=== PATIENT | female | born 1950 | race Native Hawaiian/Other Pacific Islander ===

== ENCOUNTER 2017-05-29 12:51 | Inpatient (IN) | payer MEDICARE, BC, OTHER ==
[~2017-05-29] VITALS: Ht 157.5 cm; Wt 64.9 kg
[2017-05-29 14:19] LABS: CREATININE 0.9 mg/dL (0.6-1.3)
[2017-05-29 14:32] LABS: BILIRUBIN,DIRECT 0.3 mg/dL (0.0-0.2); BILIRUBIN,TOTAL 0.7 mg/dL (0.2-1.0); TOTAL PROTEIN, SERUM 7.9 g/dL (6.4-8.2)
--- NOTE | 2017-05-29 15:53 | NUR ---
DR. MALONE ADMITTED THE PT TO TELE. TRANSFER TO FLOOR PENDING ON BED AVAILABILITY.
[2017-05-29 15:54] LABS: BASOPHILS % (AUTO) 0.2 % (0.0-2.0); EOSINOPHILS % (AUTO) 0.1 % (0.0-7.0); LYMPHOCYTES % (AUTO) 30.7 % (20.5-51.5); MEAN CORPUSCULAR HEMOGLOBIN 40.8 uug (24.7-32.8); MEAN CORPUSCULAR HGB CONC 33 g/dL (32.3-35.6); MEAN CORPUSCULAR VOLUME 121.9 fL (75.5-95.3); MONOCYTES # (AUTO) 0.2 K/uL (2.0-10.0); MONOCYTES % (AUTO) 7.4 % (0.0-11.0); NEUTROPHILS % (AUTO) 61.6 % (38.5-71.5); WHITE BLOOD COUNT (AUTO) 3.3 K/uL (3.8-11.8)
[2017-05-29 15:57] LABS: HEMATOCRIT 10.9 % (31.2-41.9); HEMOGLOBIN 3.6 g/dL (10.9-14.3); PLATELET COUNT (AUTO) 16 K/uL (179-408)
--- NOTE | 2017-05-29 15:58 | NUR ---
PT REFUSES NC.
[2017-05-29 16:41] LABS: BAND % (MANUAL) 2 % (0-10); LYMPHOCYTES % (MANUAL) 28 % (20-40); MONOCYTES % (MANUAL) 2 % (2-10); NEUTROPHILS % (MANUAL) 68 % (42-75)
--- NOTE | 2017-05-29 16:43 | NUR ---
PT ON BED, ON EXHIBIT CLEANER, WATCHING TV. BREATHING NORMALLY, DENEIS ANY HEADACHE, DIZZINESS, SOB N/V AT THIS TIME. VS STABLE.
--- NOTE | 2017-05-29 18:10 | NUR ---
HOSPITAL DINNER TRAY PROVIDED FOR PT. PT REFUSED TO EAT AT THIS TIME.
--- NOTE | 2017-05-29 18:19 | NUR ---
PT DAUGHTER AT BEDSIDE TALKING TO PT.
--- NOTE | 2017-05-29 18:20 | NUR ---
BLOOD TRANSFUSION STARTED.
--- NOTE | 2017-05-29 19:16 | NUR ---
REPORT TAKEN FROM JAYLEEN SCOTT. ASSUMING PT CARE AT THIS TIME.
--- NOTE | 2017-05-29 19:51 | NUR ---
BLOOD TRANSFUSION FINSHED. PT TOLERATED WELL. PT BREATHINHG NORMALY, NO SOB.
--- NOTE | 2017-05-29 20:06 | NUR ---
PT SITTING IN BED, APPEARS TO BE AGGITATED AND CONFUSED, PICKING AT IV SITE. CHLDREN AT BEDSIDE.
--- NOTE | 2017-05-29 21:00 | NUR ---
BLOOD TRANSFUSION STARTED.
--- NOTE | 2017-05-29 21:15 | NUR ---
PT DENIES ITCHING. NO SIGNS OF BLOOD TRANSFUSION REACTION. WILL CONTINUE TO MONITOR.
--- NOTE | 2017-05-29 21:36 | NUR ---
PT STILL REFUSES TO PROVIDE URINE SAMPLE. STATES SHE DOES NOT HAVE TO URINATE.
--- NOTE | 2017-05-29 22:10 | NUR ---
Pt. admitted to TELE, under care of Dr. VEGA Belongs List completed
--- NOTE | 2017-05-29 22:11 | NUR ---
BLOOD TRANSFUSION ENDORSED TO FLOOR NURSE.
--- NOTE | 2017-05-29 22:30 | NUR ---
NEW ADMIT FROM ER, ADMITTED FOR ANEMIA. PATIENT TRANSFERRED WITH BLOOD TRANSFUSION AND IN STABLE CONDITION. VSS STABLE WILL CONTINUE TO CLOSELY MONITOR PATIENT
[2017-05-29 22:31] VITALS: BP 138/69
[2017-05-29] MEDS ORDERED: MAGNESIUM HYDROXIDE 30 ML LIQUID UDC PO PRN (23:00)
[2017-05-29] MEDS ORDERED: LORAZEPAM 2 MG/1 ML VIAL IV PRN (23:00)
[2017-05-29] MEDS ORDERED: ONDANSETRON 4 MG/2 ML VIAL IV PRN (23:00)
[2017-05-29] MEDS ORDERED: TEMAZEPAM 15 MG CAPSULE PO PRN (23:00)
--- NOTE | 2017-05-29 23:45 | NUR ---
PLATELETS READY TO TRANSFUSE. PATIENT VERIFIED, TRANSFUSION STARTED VSS ASSESSED BP 141/64, NY 61, TEMP 98.9, RR 18. WILL CONTINUE TO CLOSELY MONITOR PATIENT
[2017-05-30] VITALS (14 sets, daily range): BP systolic 97–138; BP diastolic 40–68
--- NOTE | 2017-05-30 | NUR ---
ASSESSED PATIENT WITH NO ADVERSE REACTION NOTED, VSS ASSESSED BP 121/61, RR 18, TEMP 98.9, IA 64. NO RESP DISTRESS OR ANY SIGNS OF DISTRESS. TRANSFUSION STILL RUNNING, WILL CONTINUE TO CLOSELY MONITOR PATIENT
--- NOTE | 2017-05-30 02:00 | NUR ---
END TRANSFUSION, PATIENT TOLERATED INFUSION WELL VSS STABLE BP 122/61, CT 62, RR 18, 98.6. PATIENT WITH NO S/S OF RESP DISTRESS OR ANY DISCOMFORT. PATIENT IN STABLE CONDITION, WILL CONTINUE TO MONITOR PATIENT
--- NOTE | 2017-05-30 05:55 | NUR ---
PATIENT SLEPT MOST OF THE SHIFT, SHE DENIES PAIN, ANY DISTRESS OR DIZZINESS. PATIENT NOTED WITH EPISODES OF CONFUSION, REDIRECTION PROVIDES. VSS STABLE, NO SIGNIFICANT CHANGES IN STATUS. SAFETY AND COMFORT MEASURES MAINTAINED AT ALL TIMES
[2017-05-30 06:46] LABS: BILIRUBIN,TOTAL 2.2 mg/dL (0.2-1.0); CREATININE 0.7 mg/dL (0.6-1.3); MAGNESIUM 2.6 mg/dL (1.8-2.4); PHOSPHOROUS 2.3 mg/dL (2.5-4.9); POTASSIUM 3.6 mmol/L (3.5-5.1); TOTAL PROTEIN, SERUM 7.3 g/dL (6.4-8.2)
[2017-05-30 07:04] LABS: BASOPHILS % (AUTO) 0.1 % (0.0-2.0); MONOCYTES # (AUTO) 0.2 K/uL (2.0-10.0); PLATELET COUNT (AUTO) 58 K/uL (179-408)
[2017-05-30 07:07] LABS: EOSINOPHILS % (AUTO) 0.2 % (0.0-7.0); LYMPHOCYTES # (AUTO) 0.7 K/uL (20.0-40.0); LYMPHOCYTES % (AUTO) 24.4 % (20.5-51.5); MEAN CORPUSCULAR HEMOGLOBIN 35.2 uug (24.7-32.8); MEAN CORPUSCULAR HGB CONC 35 g/dL (32.3-35.6); MEAN CORPUSCULAR VOLUME 100.4 fL (75.5-95.3); NEUTROPHILS % (AUTO) 68.3 % (38.5-71.5); WHITE BLOOD COUNT (AUTO) 2.9 K/uL (3.8-11.8)
--- NOTE | 2017-05-30 07:20 | NUR ---
Dr blake notified of patient's critical values for H/h of 6.2/17.7 PLT of 58. RBC of 1.76. No new orders received. Per Dr blake pt will be seen by communications superintendent. Pt asymptomatic. Call light is within reach.
[2017-05-30 07:26] LABS: RED BLOOD CELL COUNT(AUTO) 1.75 MIL/uL (3.63-4.92)
[2017-05-30 07:27] LABS: HEMATOCRIT 17.6 % (31.2-41.9); HEMOGLOBIN 6.2 g/dL (10.9-14.3)
--- NOTE | 2017-05-30 08:00 | NUR ---
Pt is in no acute distress. Pt very confused. Pt alert to name, time, and place but needed reorientation on why pt is here. Pt all dressed up and wont take of her clothes states that she will wait for the doctor to come and see her. Pt states that she has problem with her legs and will tell the DR about it. Pt denies any c/o pain. Fall precaution implemented. Call light is within reach.
[2017-05-30 08:15] LABS: THYROID STIMULATING HORMONE 1.425 mIU/mL (0.358-3.740)
[2017-05-30] MEDS: FAMOTIDINE 20 MG TABLET PO SCH ×2 (08:43→08:46)
[2017-05-30 08:47] LABS: LYMPHOCYTES % (MANUAL) 30 % (20-40); MONOCYTES % (MANUAL) 2 % (2-10); NEUTROPHILS % (MANUAL) 68 % (42-75)
--- NOTE | 2017-05-30 11:00 | NUR ---
Dr blake ok pt to work with physical therapy. Notified physical therapy re: albertina.
[2017-05-30] MEDS ORDERED: NEUTRA PHOS PACKET PO ONE (16:15)
--- NOTE | 2017-05-30 17:00 | NUR ---
Pt is in no acute distress. NO s/s of any bleeding noted. Call light is within reach.
--- NOTE | 2017-05-30 18:07 | NUR ---
Dr palmer referral clerk evaluated pt. Pt is in no condition to make decision for herself due to pt is very confused and doesnt understand whats going on. Dr Palmer Spoke with next of kin RYNE DUONG [phone] pt's son and explained situation on why pt need to have a bone marrow biopsy its benefits and risk of doin biopsy. Ryne is going to speak with his sister and discuss if they are willing to do the bone marrow biopsy. Instructed ryne duong to call nursing when they are willing to give consent. Ryne son verbalized understanding.
--- NOTE | 2017-05-30 19:30 | NUR ---
Received patient awake & alert, family in room (daughter & son). No SOB denies chest pain. Anxious & hyperverbal. Pale looking , current H/H 6.2/ 17.6. Transfusion of 1 unit PRBC was ordered by Dr. Palmer, & for Bone marrow biopsy in AM. Explained the procedure to patient but patient appears confused & forgetful. Obtained procedure consent from patient's daughter, Brendan. Vital signs are stable, sinus rhythm on the monitor.
--- NOTE | 2017-05-30 21:18 | NUR ---
Patient remains awake but pleasantly confused. Transfusion of 1 unit PRBC started. Vital signs are stable. Telemetry shows NSR. Will continue to monitor.
--- NOTE | 2017-05-30 22:12 | NUR ---
Patient asleep, no signs of transfusion reaction noted.
[2017-05-31] VITALS (7 sets, daily range): BP systolic 96–154; BP diastolic 56–76
--- NOTE | 2017-05-31 00:04 | NUR ---
Patient tolerated 1 unit PRBC, no signs of transfusion reaction noted. No acute resp distress. Sinus rhythm on the monitor. Kept comfortable.
--- NOTE | 2017-05-31 07:00 | NUR ---
Patient rested well, kept comfortable. For Bone marrow biopsy procedure today. No acute resp. distress. Sinus rhythm on the monitor.
[2017-05-31 07:55] LABS: EOSINOPHILS % (AUTO) 0.4 % (0.0-7.0); HEMOGLOBIN 8.5 g/dL (10.9-14.3); LYMPHOCYTES # (AUTO) 0.7 K/uL (20.0-40.0); MONOCYTES # (AUTO) 0.2 K/uL (2.0-10.0)
[2017-05-31 07:59] LABS: BASOPHILS % (AUTO) 0.1 % (0.0-2.0); HEMATOCRIT 24.5 % (31.2-41.9); LYMPHOCYTES % (AUTO) 29.2 % (20.5-51.5); MEAN CORPUSCULAR HEMOGLOBIN 33.6 uug (24.7-32.8); MEAN CORPUSCULAR HGB CONC 35 g/dL (32.3-35.6); MEAN CORPUSCULAR VOLUME 96.9 fL (75.5-95.3); MONOCYTES % (AUTO) 8.1 % (0.0-11.0); NEUTROPHILS # (AUTO) 1.5 K/uL (1.8-8.9); NEUTROPHILS % (AUTO) 62.2 % (38.5-71.5); RED BLOOD CELL COUNT(AUTO) 2.53 MIL/uL (3.63-4.92)
--- NOTE | 2017-05-31 08:00 | NUR ---
Pt still very confused. Awaiting for psychiatrist eval per dr blake. Pt's family signed consent for bone marrow biopsy. Pt is in no acute distress. Call light is within reach. Fall precaution implemented.
[2017-05-31] MEDS: FAMOTIDINE 20 MG TABLET PO SCH (08:06)
[2017-05-31 08:21] LABS: PLATELET COUNT (AUTO) 36 K/uL (179-408)
[2017-05-31 08:59] LABS: BILIRUBIN,DIRECT 0.4 mg/dL (0.0-0.2); BILIRUBIN,TOTAL 1.5 mg/dL (0.2-1.0); TOTAL PROTEIN, SERUM 7.4 g/dL (6.4-8.2)
[2017-05-31 09:00] LABS: CREATININE 0.6 mg/dL (0.6-1.3); MAGNESIUM 2.5 mg/dL (1.8-2.4); PHOSPHOROUS 2.5 mg/dL (2.5-4.9); POTASSIUM 3.4 mmol/L (3.5-5.1)
[2017-05-31 10:42] LABS: WHITE BLOOD COUNT (AUTO) 2.5 K/uL (3.8-11.8)
[2017-05-31 10:43] LABS: LYMPHOCYTES % (MANUAL) 33 % (20-40); MONOCYTES % (MANUAL) 5 % (2-10); NEUTROPHILS % (MANUAL) 62 % (42-75)
--- NOTE | 2017-05-31 10:49 | NUR ---
PT NOT NPO FOR ABDOMEN US. SPOKE TO RN HOMER AND PLACED PT ON NPO. WILL DO EXAM AT 3PM
[2017-05-31] MEDS ORDERED: POTASSIUM CHLORIDE 20 MEQ TAB.PRT.SR PO ONE (11:15)
[2017-05-31 13:13] LABS: *BLOOD, URINE 2+ (NEGATIVE); *COLOR,URINE AMBER (YELLOW); *KETONES,URINE 2+ (NEGATIVE); *PROTEIN,URINE 1+ (NEGATIVE); *UROBILINOGEN,URINE >=8.0 E.U./dl (NORMAL); LEUKOCYTE ESTERASE ,URINE TRACE (NEGATIVE); NITRITE, URINE POSITIVE (NEGATIVE); PH,URINE 6.5 (5.0-8.0); UGLUCOSE NEGATIVE (NEGATIVE)
[2017-05-31 15:16] LABS: *BILIRUBIN,URIN 1+ (NEGATIVE); *CLARITY,URINE HAZY (CLEAR)
[2017-05-31 15:18] LABS: BACTERIA,URINE MODERATE /HPF (NONE SEEN)
[2017-05-31 15:19] LABS: MUCUS,URINE MANY /LPF (0-FEW); SQUAMOUS EPITHELIAL CELL,UR MODERATE /HPF (NONE SEEN)
--- NOTE | 2017-05-31 17:14 | NUR ---
Spoke with brendan duong [phone] daughter for pt re: Mishel Frias consent request for EGD. Daughter brendan wants to speak with BHANU Frias first to ask questions before making a decision to do the procedure. Gave number of ASAEL DRUMMOND [phone] to Brendan. Instructed daughter Brendan to call back when decision is made re: EGD.
[2017-05-31] MEDS: MORPHINE SULFATE 2 MG/1 ML DISP.SYRIN IV PRN (18:49)
[2017-05-31] MEDS ORDERED: LIDOCAINE HCL 1% 20 ML VIAL IJ ONE (19:15)
--- NOTE | 2017-05-31 19:30 | NUR ---
RECEIVE PT IN BED. ALERT TO SELF ONLY. MAINLY CONFUSED AND DISORIENTED. NOT IN ACUTE DISTRESS. NO S/SX OF PAIN OR SOB. SR ON TELE AT 61/MIN. IV SITE ON RIGHT AC INTACT AND PATENT. SAFETY MEASURE INITIATED AND CALL [facility] WITHIN REACHED.
--- NOTE | 2017-05-31 19:51 | NUR ---
pT TOLERATED BONE MARROW BIOPSY WITH DR ISSA BUSH. Pt was premedicated with morphine for pain management effective. Call light is within reach.
--- NOTE | 2017-05-31 19:58 | NUR ---
PT SEEN BY DOCTOR Randall BUSH AND ORDERED 1 BAG OF PLATELET.
--- NOTE | 2017-05-31 20:30 | NUR ---
TELEPHONE CALL TO PT DAUGHTER ISAI TO OBTAIN CONSENT FOR EGD PROCEDURE. PER ROBERTO SHE HAD CALLED THE DOCTOR 2X TODAY AND SHE IS STILL WAITING FOR DOCTOR VYAS'S RETURN CALL AND WANTED TO SPEAK TO HER ABOUT THE PROCEDURE, BEFORE GIVING HER CONSENT. STATED SHE WILL KEEP TRYING TO CALL DOCTOR VYAS UNTIL TOMORROW MORNING TO GET MORE INFORMATION AND WILL CALL [facility] IN THE MORNING AFTER TALKING TO THE DOCTOR. INFORMED ROBERTO THAT PROCEDURE IS AT 2PM TOMORROW AND STATES UNDERSTANDING.
[2017-06-01] VITALS (8 sets, daily range): BP systolic 105–127; BP diastolic 46–68
--- NOTE | 2017-06-01 01:30 | NUR ---
COMPLETED 1 UNIT OF PLATELET. NO ADVERSE REACTION NOTED. VS WNL.
--- NOTE | 2017-06-01 01:45 | NUR ---
IV INFILTRATED ON RIGHT AC. STARTED NEW IV ON LEFT AC.
--- NOTE | 2017-06-01 06:09 | NUR ---
AOX1. MAINLY CONFUSED. DENIES ANY PAIN OR SOB WHEN ASKED. NOT IN ACUTE DISTRESS. O2 SAT AT 98% ON RA. SR ON TELE AT 59/MIN. IV SITE ON LEFT AC INTACT AND PATENT. SAFETY MEASURE MAINTAINED AND CALL [facility] WITHIN REACH.
--- NOTE | 2017-06-01 07:25 | NUR ---
RECEIVED REPORT FROM TRANSITION MGR NURSE, PATIENT IN BED AWAKE, PATIENT APPEARS TO BE VERY CONFUSED, ASKING FOR STAFF MEMBERS FROM YESTERDAY. PATIENT REPEATEDLY ASKING FOR SOMETHING THAT NEEDS TO BED SWALLOWED FOR HER STOMACH AND LEGGS. BED IN LOW POSITION, SIDE RAILS UP X2, BED ALARM ON.
[2017-06-01 07:30] LABS: CREATININE 0.6 mg/dL (0.6-1.3); MAGNESIUM 2.2 mg/dL (1.8-2.4); PHOSPHOROUS 2.6 mg/dL (2.5-4.9); POTASSIUM 3.8 mmol/L (3.5-5.1); TOTAL PROTEIN, SERUM 7.4 g/dL (6.4-8.2)
[2017-06-01 07:36] LABS: HEMOGLOBIN 8.6 g/dL (10.9-14.3); LYMPHOCYTES # (AUTO) 0.7 K/uL (20.0-40.0)
[2017-06-01 07:38] LABS: BASOPHILS % (AUTO) 0.2 % (0.0-2.0); EOSINOPHILS % (AUTO) 0.5 % (0.0-7.0); HEMATOCRIT 24.7 % (31.2-41.9); LYMPHOCYTES % (AUTO) 35.5 % (20.5-51.5); MEAN CORPUSCULAR HEMOGLOBIN 33.7 uug (24.7-32.8); MEAN CORPUSCULAR HGB CONC 35 g/dL (32.3-35.6); MEAN CORPUSCULAR VOLUME 97.2 fL (75.5-95.3); MONOCYTES # (AUTO) 0.1 K/uL (2.0-10.0); MONOCYTES % (AUTO) 8.1 % (0.0-11.0); NEUTROPHILS % (AUTO) 55.7 % (38.5-71.5); RED BLOOD CELL COUNT(AUTO) 2.54 MIL/uL (3.63-4.92)
[2017-06-01 07:45] LABS: PLATELET COUNT (AUTO) 71 K/uL (179-408); WHITE BLOOD COUNT (AUTO) 1.8 K/uL (3.8-11.8)
[2017-06-01 08:11] LABS: *IMMUNOGLOBULIN G, SERUM 2642 mg/dL (700-1600); IMMUNOGLOBULIN A, SERUM 315 mg/dL (87-352); IMMUNOGLOBULIN M, SERUM 69 mg/dL (26-217)
[2017-06-01] MEDS: PANTOPRAZOLE SODIUM 40 MG VIAL IV SCH (08:58)
[2017-06-01] MEDS: MORPHINE SULFATE 2 MG/1 ML DISP.SYRIN IV PRN (09:04)
[2017-06-01 10:07] LABS: BAND % (MANUAL) 3 % (0-10); BASOPHILS % (MANUAL) 1 % (0-2); LYMPHOCYTES % (MANUAL) 32 % (20-40); MONOCYTES % (MANUAL) 4 % (2-10); NEUTROPHILS % (MANUAL) 60 % (42-75)
[2017-06-01] MEDS: CEFTRIAXONE 1 G in IV DEXTROSE 5% 50 ML IV SCH (12:50)
[2017-06-01 13:06] LABS: A/G RATIO 0.6 (0.7-1.7); ALBUMIN 2.5 g/dL (2.9-4.4); ALPHA-1-GLOBULIN 0.4 g/dL (0.0-0.4); ALPHA-2-GLOBULIN 0.5 g/dL (0.4-1.0); GAMMA GLOBULIN 2.3 g/dL (0.4-1.8); GLOBULIN, TOTAL 4.1 g/dL (2.2-3.9); M-SPIKE Not Observed g/dL (Not Observed)
--- NOTE | 2017-06-01 14:33 | NUR ---
Patient has been very confused, stating that she needs to go to work and that she is going to leave. Patient is also very confused about the procedure that is going to take place today. Family consulted via telephone. Patient reports pain in bilateral lower extremities. Currently patient is in bed, waiting to be taken down to surgery, bed in low position, side rails up x2. surgery notified that the patient is reluctant to taking off jewelery and dentures
--- NOTE | 2017-06-01 15:23 | NUR ---
RECEIVED REPORT FROM DAY SHIFT NURSE TO CONTINUE CARE FOR THIS PATIENT. SURGERY WAS HERE TO TAKE PATIENT DOWN HOWEVER PATIENT IS REFUSING TO GO DOWN. EXPLAINED TO PATIENT THE REASON FOR EGD HOWEVER PATIENT WANTS HER "LEGS FIXED" AND NOT DOING ANYTHING UNTIL ITS ADDRESSED. ATTEMPTED TO CALL DAUGHTER ROBERTO BUT WENT STRAIGHT TO ANSWERING MACHINE. GOT A HOLD OF PATIENT SON ANEESH AND HE STATED HE WAS AT WORK AND COULD NOT TALK AT THIS TIME.
[2017-06-01] MEDS: QUETIAPINE FUMARATE 25 MG TABLET PO PRN (17:46)
--- NOTE | 2017-06-01 17:57 | NUR ---
Patient refusing to wear tele monitor. dressed in clothes and boots, states she is going home because she has to be to work in the morning. Explained to patient there is no discharge order, Seroquel was given, iv still intact, heplock. will continue to closely monitor.
--- NOTE | 2017-06-01 19:25 | NUR ---
RECEIVE PT IN BED. ASLEEP BUT EASILY AROUSE. NO ANXIETY NOTED AT THIS TIME. NOT IN ACUTE DISTRESS. NO S/SX OF PAIN OR SOB. SR ON TELE AT 72/MIN. IV SITE ON LEFT AC INTACT AND PATENT. SAFETY MEASURE INITIATED AND CALL [facility] WITHIN REACHED.
--- NOTE | 2017-06-01 19:30 | NUR ---
REAPPLIED TELEMETRY. PT COOPERATIVE. NO ANXIETY NOTED.
[2017-06-02 00:41] VITALS: BP 122/68
[2017-06-02 04:00] VITALS: BP 141/75
--- NOTE | 2017-06-02 06:05 | NUR ---
PT SLEPT WELL LAST NIGHT. AROUSE TO VERBAL STIMULI. AOX1-2. NO COMPLAIN OF PAIN OR SOB. NOT IN ACUTE DISTRESS. O2 SAT AT 98% ON RA. SR ON TELE AT 64/MIN. IV SITE ON LEFT AC INTACT AND PATENT. SAFETY MEASURE MAINTAINED AND CALL [facility] WITHIN REACH.
[2017-06-02 07:23] LABS: HEMOGLOBIN 8.2 g/dL (10.9-14.3); LYMPHOCYTES # (AUTO) 0.6 K/uL (20.0-40.0); MONOCYTES # (AUTO) 0.2 K/uL (2.0-10.0); NEUTROPHILS # (AUTO) 0.8 K/uL (1.8-8.9); NEUTROPHILS % (AUTO) 49.3 % (38.5-71.5)
[2017-06-02 07:25] LABS: BASOPHILS % (AUTO) 0.4 % (0.0-2.0); EOSINOPHILS % (AUTO) 0.8 % (0.0-7.0); LYMPHOCYTES % (AUTO) 38.3 % (20.5-51.5); MEAN CORPUSCULAR HEMOGLOBIN 33.6 uug (24.7-32.8); MEAN CORPUSCULAR HGB CONC 34 g/dL (32.3-35.6); MEAN CORPUSCULAR VOLUME 98.3 fL (75.5-95.3); MONOCYTES % (AUTO) 11.2 % (0.0-11.0); PLATELET COUNT (AUTO) 58 K/uL (179-408)
--- NOTE | 2017-06-02 07:25 | NUR ---
RECEIVED REPORT FROM CANDLE MAKER NURSE, PATIENT IN BED ASLEEP, NO DISTRESS NOTED AT THIS TIME, BED IN LOW POSITION, SIDE RAILS UP X2. BED ALARM ON.
[2017-06-02 07:49] LABS: BILIRUBIN,TOTAL 0.8 mg/dL (0.2-1.0); CREATININE 0.6 mg/dL (0.6-1.3); MAGNESIUM 2.2 mg/dL (1.8-2.4); PHOSPHOROUS 2.9 mg/dL (2.5-4.9); POTASSIUM 3.4 mmol/L (3.5-5.1); TOTAL PROTEIN, SERUM 7.2 g/dL (6.4-8.2)
[2017-06-02 07:50] LABS: RED BLOOD CELL COUNT(AUTO) 2.45 MIL/uL (3.63-4.92); WHITE BLOOD COUNT (AUTO) 1.5 K/uL (3.8-11.8)
[2017-06-02] MEDS: PANTOPRAZOLE SODIUM 40 MG VIAL IV SCH (09:02)
[2017-06-02 09:08] VITALS: BP 124/73
[2017-06-02 09:38] LABS: BAND % (MANUAL) 2 % (0-10); EOSINOPHILS % (MANUAL) 1 % (0-8); LYMPHOCYTES % (MANUAL) 36 % (20-40); MONOCYTES % (MANUAL) 8 % (2-10); NEUTROPHILS % (MANUAL) 53 % (42-75)
[2017-06-02 11:30] VITALS: BP 126/70
[2017-06-02] MEDS: CEFTRIAXONE 1 G in IV DEXTROSE 5% 50 ML IV SCH (12:10)
[2017-06-02] MEDS ORDERED: POTASSIUM CHLORIDE 20 MEQ TAB.PRT.SR PO ONE (14:00)
[2017-06-02] MEDS ORDERED: FLEET ENEMA 133 ML BOTTLE RC PRN (15:00)
[2017-06-02] MEDS ORDERED: GOLYTELY 4000 ML BOTTLE PO ONE (15:00)
[2017-06-02] MEDS ORDERED: MAGNESIUM CITRATE 296 ML BOTTLE PO ONE ×2 (15:00→22:00)
--- NOTE | 2017-06-02 15:00 | NUR ---
Patients son consented to colonoscopy tomorrow at 330pm. Kelsey in case management also spoke to son.
[2017-06-02 16:06] VITALS: BP 130/70
[2017-06-02] MEDS: ACETAMINOPHEN 325 MG TABLET PO PRN (16:51)
[2017-06-02] MEDS: QUETIAPINE FUMARATE 25 MG TABLET PO PRN (16:52)
--- NOTE | 2017-06-02 18:56 | NUR ---
Patient started drinking prep for colonoscopy very slowly, needs a lot encouragement to finish. Currently patient is in bed, no distress noted, bed in low position, side rails up x2, bed alarm on.
[2017-06-02 19:38] LABS: BASOPHILS % (AUTO) 0.2 % (0.0-2.0); EOSINOPHILS % (AUTO) 0.5 % (0.0-7.0); HEMATOCRIT 23.8 % (31.2-41.9); HEMOGLOBIN 8.4 g/dL (10.9-14.3); LYMPHOCYTES # (AUTO) 0.9 K/uL (20.0-40.0); LYMPHOCYTES % (AUTO) 40.7 % (20.5-51.5); MEAN CORPUSCULAR HEMOGLOBIN 34.6 uug (24.7-32.8); MEAN CORPUSCULAR HGB CONC 35 g/dL (32.3-35.6); MEAN CORPUSCULAR VOLUME 98.2 fL (75.5-95.3); MONOCYTES # (AUTO) 0.2 K/uL (2.0-10.0); MONOCYTES % (AUTO) 11.4 % (0.0-11.0); NEUTROPHILS % (AUTO) 47.2 % (38.5-71.5); WHITE BLOOD COUNT (AUTO) 2.1 K/uL (3.8-11.8)
[2017-06-02 19:42] LABS: RED BLOOD CELL COUNT(AUTO) 2.42 MIL/uL (3.63-4.92)
[2017-06-02 19:44] LABS: PLATELET COUNT (AUTO) 48 K/uL (179-408)
--- NOTE | 2017-06-02 20:00 | NUR ---
LAB CALLED TO REPORT CRITICAL LAB VALUES; PLATELET COUNT OF 48. NOTIFIED DR. WOODWARD, NO NEW ORDERS RECEIVED. Pt IS ASYMPTOMATIC AND IS NOT SHOWING S/S OF DISTRESS. WILL CONTINUE TO MONITOR AND FOLLOW PLAN OF CARE.
[2017-06-02 20:22] VITALS: BP 115/60
--- NOTE | 2017-06-02 21:24 | NUR ---
Patient refuses to drink Golytely fluids as prep for her Colonoscopy procedure in AM. Dr. Mills (G.I ) notified. Mag Citrate 2 bottles was ordered.
[2017-06-02] MEDS ORDERED: MAGNESIUM CITRATE 296 ML BOTTLE ONE (21:34)
--- NOTE | 2017-06-02 22:00 | NUR ---
LAB CALLED TO REPORT CRITICAL LAB VALUES; PLATELET COUNT OF 44, WBC OF 1.9. NOTIFIED DR. WOODWARD, NO NEW ORDERS RECEIVED. Pt IS ASYMPTOMATIC AND IS NOT SHOWING S/S OF DISTRESS. WILL CONTINUE TO MONITOR AND FOLLOW PLAN OF CARE.
--- NOTE | 2017-06-02 22:03 | NUR ---
Patient was able to drink 1 bottle of Mag citrate and 1 cup of Golytely but stated she can't handle anymore the taste of these prep fluids so she wont be able to finish it all.
[2017-06-02 22:17] LABS: BASOPHILS % (AUTO) 0.2 % (0.0-2.0); EOSINOPHILS % (AUTO) 0.5 % (0.0-7.0); HEMATOCRIT 21.8 % (31.2-41.9); HEMOGLOBIN 7.7 g/dL (10.9-14.3); LYMPHOCYTES # (AUTO) 0.8 K/uL (20.0-40.0); LYMPHOCYTES % (AUTO) 43.8 % (20.5-51.5); MEAN CORPUSCULAR HEMOGLOBIN 34.5 uug (24.7-32.8); MEAN CORPUSCULAR HGB CONC 35 g/dL (32.3-35.6); MEAN CORPUSCULAR VOLUME 97.6 fL (75.5-95.3); MONOCYTES # (AUTO) 0.2 K/uL (2.0-10.0); MONOCYTES % (AUTO) 12.5 % (0.0-11.0); NEUTROPHILS # (AUTO) 0.8 K/uL (1.8-8.9)
[2017-06-02 22:32] LABS: RED BLOOD CELL COUNT(AUTO) 2.23 MIL/uL (3.63-4.92)
[2017-06-02 22:33] LABS: PLATELET COUNT (AUTO) 44 K/uL (179-408); WHITE BLOOD COUNT (AUTO) 1.9 K/uL (3.8-11.8)
[2017-06-02 22:38] LABS: BASOPHILS % (MANUAL) 0 % (0-2); EOSINOPHILS % (MANUAL) 0 % (0-8); LYMPHOCYTES % (MANUAL) 40 % (20-40); MONOCYTES % (MANUAL) 13 % (2-10); NEUTROPHILS % (MANUAL) 47 % (42-75)
--- NOTE | 2017-06-03 00:30 | NUR ---
Patient resting comfortably. Refused to finish Golytely & Mag Citrate. Kept NPO.
[2017-06-03 04:00] VITALS: BP 95/66
[2017-06-03 04:15] LABS: HEMOGLOBIN 8.2 g/dL (10.9-14.3); MONOCYTES # (AUTO) 0.3 K/uL (2.0-10.0); NEUTROPHILS # (AUTO) 0.6 K/uL (1.8-8.9)
[2017-06-03 04:17] LABS: BASOPHILS % (AUTO) 0.1 % (0.0-2.0); EOSINOPHILS % (AUTO) 0.5 % (0.0-7.0); HEMATOCRIT 23.5 % (31.2-41.9); LYMPHOCYTES # (AUTO) 0.9 K/uL (20.0-40.0); LYMPHOCYTES % (AUTO) 49.7 % (20.5-51.5); MEAN CORPUSCULAR HEMOGLOBIN 34.1 uug (24.7-32.8); MEAN CORPUSCULAR HGB CONC 35 g/dL (32.3-35.6); MEAN CORPUSCULAR VOLUME 97.7 fL (75.5-95.3); MONOCYTES % (AUTO) 16.1 % (0.0-11.0); NEUTROPHILS % (AUTO) 33.6 % (38.5-71.5)
[2017-06-03 04:23] LABS: PLATELET COUNT (AUTO) 45 K/uL (179-408); RED BLOOD CELL COUNT(AUTO) 2.41 MIL/uL (3.63-4.92)
[2017-06-03 04:25] LABS: WHITE BLOOD COUNT (AUTO) 1.9 K/uL (3.8-11.8)
[2017-06-03 06:07] LABS: BAND % (MANUAL) 3 % (0-10); LYMPHOCYTES % (MANUAL) 50 % (20-40); MONOCYTES % (MANUAL) 10 % (2-10); NEUTROPHILS % (MANUAL) 37 % (42-75)
[2017-06-03 06:30] LABS: CREATININE 0.6 mg/dL (0.6-1.3); MAGNESIUM 2.5 mg/dL (1.8-2.4); PHOSPHOROUS 2.5 mg/dL (2.5-4.9)
--- NOTE | 2017-06-03 06:50 | NUR ---
Patient had total BM x3, tarry-formed stool noted. Encouraged to continue to take remaining 1 bottle of Mag Citrate but patient refused. Paged Dr. Mills & received orders.
[2017-06-03] MEDS ORDERED: FLEET ENEMA 133 ML BOTTLE RC ONE ×2 (07:00→11:15)
[2017-06-03 07:05] LABS: BASOPHILS % (AUTO) 0.3 % (0.0-2.0); EOSINOPHILS % (AUTO) 0.6 % (0.0-7.0); HEMATOCRIT 22.5 % (31.2-41.9); LYMPHOCYTES # (AUTO) 0.6 K/uL (20.0-40.0); LYMPHOCYTES % (AUTO) 37.4 % (20.5-51.5); MEAN CORPUSCULAR HEMOGLOBIN 35.5 uug (24.7-32.8); MEAN CORPUSCULAR HGB CONC 36 g/dL (32.3-35.6); MEAN CORPUSCULAR VOLUME 99.7 fL (75.5-95.3); MONOCYTES # (AUTO) 0.2 K/uL (2.0-10.0); MONOCYTES % (AUTO) 14.1 % (0.0-11.0); NEUTROPHILS # (AUTO) 0.7 K/uL (1.8-8.9); NEUTROPHILS % (AUTO) 47.6 % (38.5-71.5)
[2017-06-03 07:06] LABS: HEPATITIS A AB, IgM Negative (Negative); HEPATITIS B SURFACE AG Negative (Negative)
--- NOTE | 2017-06-03 07:18 | NUR ---
Pt SLEPT WELL THROUGHOUT THE NIGHT, IN STABLE CONDITION. CONTINUED TO REFUSE BOWEL PREP, HAD STARRY TOOL THIS MORNING. NOTIFIED DR. CHAHAL AND RECEIVED ORDERS. ENDORSED TO DAY SHIFT NURSE.
--- NOTE | 2017-06-03 07:20 | NUR ---
RECEIVED REPORT FROM SPECIMEN PROCESSOR NURSE, PATIENT IN BED ASLEEP, NO DISTRESS NOTED, BED IN LOW POSITION, SIDE RAILS UP X2. BED ALARM ON.
[2017-06-03] MEDS ORDERED: LIDOCAINE HCL 2% 20 ML VIAL MC ONE (07:32)
[2017-06-03] MEDS ORDERED: PROPOFOL 200 MG/20 ML BOTTLE IV ONE (07:32)
[2017-06-03] MEDS ORDERED: ETOMIDATE 20 MG/10 ML VIAL MC ONE (07:32)
[2017-06-03] MEDS ORDERED: IV NORMAL SALINE 1000 ML BAG IV ONE (07:32)
[2017-06-03 07:37] LABS: RED BLOOD CELL COUNT(AUTO) 2.25 MIL/uL (3.63-4.92)
[2017-06-03 07:45] LABS: PLATELET COUNT (AUTO) 43 K/uL (179-408); WHITE BLOOD COUNT (AUTO) 1.5 K/uL (3.8-11.8)
[2017-06-03 08:15] VITALS: BP 108/63
[2017-06-03] MEDS: LORAZEPAM 1 MG TABLET PO PRN (08:35)
[2017-06-03] MEDS: PANTOPRAZOLE SODIUM 40 MG VIAL IV SCH (08:36)
[2017-06-03 09:08] LABS: *OCCULT BLOOD STOOL POSITIVE (NEGATIVE)
[2017-06-03 10:06] LABS: BASOPHILS % (AUTO) 0.3 % (0.0-2.0); EOSINOPHILS % (AUTO) 0.4 % (0.0-7.0); HEMATOCRIT 24.7 % (31.2-41.9); HEMOGLOBIN 8.7 g/dL (10.9-14.3); LYMPHOCYTES # (AUTO) 0.7 K/uL (20.0-40.0); LYMPHOCYTES % (AUTO) 37.6 % (20.5-51.5); MEAN CORPUSCULAR HEMOGLOBIN 34.7 uug (24.7-32.8); MEAN CORPUSCULAR HGB CONC 35 g/dL (32.3-35.6); MEAN CORPUSCULAR VOLUME 98.1 fL (75.5-95.3); MONOCYTES # (AUTO) 0.2 K/uL (2.0-10.0); MONOCYTES % (AUTO) 13.7 % (0.0-11.0); NEUTROPHILS # (AUTO) 0.8 K/uL (1.8-8.9); RED BLOOD CELL COUNT(AUTO) 2.52 MIL/uL (3.63-4.92)
[2017-06-03 10:18] LABS: PLATELET COUNT (AUTO) 45 K/uL (179-408); WHITE BLOOD COUNT (AUTO) 1.8 K/uL (3.8-11.8)
[2017-06-03] MEDS: QUETIAPINE FUMARATE 25 MG TABLET PO SCH ×3 (10:35→17:00)
[2017-06-03 10:41] LABS: BAND % (MANUAL) 4 % (0-10); LYMPHOCYTES % (MANUAL) 43 % (20-40); METAMYELOCYTES % 1 % (0-1); MONOCYTES % (MANUAL) 12 % (2-10); NEUTROPHILS % (MANUAL) 40 % (42-75)
[2017-06-03 11:37] VITALS: BP 104/72
[2017-06-03] MEDS: CEFTRIAXONE 1 G in IV DEXTROSE 5% 50 ML IV SCH (12:54)
[2017-06-03] MEDS ORDERED: LORAZEPAM 2 MG/1 ML VIAL IV PRN (14:45)
[2017-06-03 15:30] VITALS: BP 105/66
--- NOTE | 2017-06-03 15:30 | NUR ---
PATIENT WAS TAKEN TO SURGERY ACCOMPANIED BY BOTH SON AND DAUGHTER. PATIENT REFUSED TO TAKE OUT DENTURES EARINGS, AND WATCH. PATIENT ALSO TOOK HER PURSE DOWN WITH HER TO SURGERY.
[2017-06-03] MEDS ORDERED: FOLIC ACID 1 MG in IV DEXTROSE 5% 50 ML IV SCH (16:00)
--- NOTE | 2017-06-03 18:46 | NUR ---
PATIENT HAS BEEN SLEEPING SINCE RETURN FROM SURGERY, EASILY AROUSABLE. CURRENTLY PATIENT IN BED ASLEEP, NO DISTRESS NOTED, BED IN LOW POSITION, SIDE RAILS UP X2. BED ALARM ON. COLONOSCOPY NEEDS TO BE REPEATED DUE TO POOR PATIENT PREP.
[2017-06-03 18:59] VITALS: BP 136/83
--- NOTE | 2017-06-03 19:30 | NUR ---
Received patient laying comfortably in bed. Asleep at the moment. Daughter at bedside. In no apparent distress. Neutropenic Precautions followed. Safety initiated. Call light within reach. Will continue to monitor. Bed alarm on. Bed is in low and locked position. Room is kept clutter free.
[2017-06-03 22:15] LABS: BASOPHILS % (AUTO) 0.2 % (0.0-2.0); EOSINOPHILS % (AUTO) 0.8 % (0.0-7.0); HEMOGLOBIN 9.1 g/dL (10.9-14.3); LYMPHOCYTES # (AUTO) 0.8 K/uL (20.0-40.0); LYMPHOCYTES % (AUTO) 44.2 % (20.5-51.5); MEAN CORPUSCULAR HEMOGLOBIN 34.2 uug (24.7-32.8); MEAN CORPUSCULAR HGB CONC 35 g/dL (32.3-35.6); MEAN CORPUSCULAR VOLUME 98.1 fL (75.5-95.3); MONOCYTES # (AUTO) 0.2 K/uL (2.0-10.0); NEUTROPHILS # (AUTO) 0.8 K/uL (1.8-8.9); NEUTROPHILS % (AUTO) 42.8 % (38.5-71.5); RED BLOOD CELL COUNT(AUTO) 2.65 MIL/uL (3.63-4.92)
[2017-06-03 22:17] LABS: PLATELET COUNT (AUTO) 41 K/uL (179-408); WHITE BLOOD COUNT (AUTO) 1.8 K/uL (3.8-11.8)
[2017-06-04] VITALS (7 sets, daily range): BP systolic 98–130; BP diastolic 53–79
--- NOTE | 2017-06-04 06:04 | NUR ---
Patient slept intermittently t/o shift. A&O x 2, forgetful. No acute distress noted. C/o of leg pain. Vital signs stable. IV was pulled out on the right wrist. Started a new one on the Left AC # 20. Room was kept clutter free. Bed remains in low and locked position. All meds given as ordered. All needs met.
[2017-06-04 07:35] LABS: LYMPHOCYTES # (AUTO) 0.6 K/uL (20.0-40.0); MONOCYTES # (AUTO) 0.2 K/uL (2.0-10.0); NEUTROPHILS # (AUTO) 0.9 K/uL (1.8-8.9); NEUTROPHILS % (AUTO) 53.9 % (38.5-71.5)
[2017-06-04 07:37] LABS: BASOPHILS % (AUTO) 0.2 % (0.0-2.0); EOSINOPHILS % (AUTO) 0.5 % (0.0-7.0); HEMATOCRIT 23.9 % (31.2-41.9); HEMOGLOBIN 8.2 g/dL (10.9-14.3); LYMPHOCYTES % (AUTO) 34.2 % (20.5-51.5); MEAN CORPUSCULAR HEMOGLOBIN 33.8 uug (24.7-32.8); MEAN CORPUSCULAR HGB CONC 34 g/dL (32.3-35.6); MEAN CORPUSCULAR VOLUME 98.9 fL (75.5-95.3); MONOCYTES % (AUTO) 11.2 % (0.0-11.0)
[2017-06-04 07:58] LABS: PLATELET COUNT (AUTO) 37 K/uL (179-408); RED BLOOD CELL COUNT(AUTO) 2.42 MIL/uL (3.63-4.92); WHITE BLOOD COUNT (AUTO) 1.7 K/uL (3.8-11.8)
--- NOTE | 2017-06-04 08:00 | NUR ---
AWAKE COOPERATE WELL NO SOB OR PAIN ON FALL PRECAUTION BED ALARM ON AND CALL LIGHT IN REACH
[2017-06-04 08:01] LABS: BILIRUBIN,TOTAL 0.3 mg/dL (0.2-1.0); CREATININE 0.7 mg/dL (0.6-1.3); MAGNESIUM 2.3 mg/dL (1.8-2.4); PHOSPHOROUS 2.9 mg/dL (2.5-4.9); POTASSIUM 3.9 mmol/L (3.5-5.1); TOTAL PROTEIN, SERUM 7.3 g/dL (6.4-8.2)
[2017-06-04] MEDS: PANTOPRAZOLE SODIUM 40 MG VIAL IV SCH (08:43)
[2017-06-04] MEDS: QUETIAPINE FUMARATE 25 MG TABLET PO SCH ×3 (08:43→17:00)
[2017-06-04 09:49] LABS: BAND % (MANUAL) 5 % (0-10); LYMPHOCYTES % (MANUAL) 32 % (20-40); MONOCYTES % (MANUAL) 7 % (2-10); NEUTROPHILS % (MANUAL) 56 % (42-75)
--- NOTE | 2017-06-04 10:30 | NUR ---
TO X RAY FOR CT OF ABD AND PELVIS WITHOUT CONTRAST VIA W/C
[2017-06-04] MEDS: FOLIC ACID 1 MG TABLET PO SCH (11:44)
[2017-06-04] MEDS: CEFTRIAXONE 1 G in IV DEXTROSE 5% 50 ML IV SCH (11:44)
[2017-06-04] MEDS: SUCRALFATE 1 G TABLET PO SCH ×3 (11:44→21:55)
--- NOTE | 2017-06-04 14:30 | NUR ---
LAB DRAWN BLOOD FOR TYPING /CROSS MATCH FOR 1 UNIT OF PLT WAS ORDER TO GIVE TODAY CONSENT SIGNS ,RESTING WELL IN ROOM
[2017-06-04] MEDS: ACETAMINOPHEN 325 MG TABLET PO PRN ×2 (15:27→21:55)
[2017-06-04] MEDS: LORAZEPAM 1 MG TABLET PO PRN (15:27)
--- NOTE | 2017-06-04 15:30 | NUR ---
PATIENT WAS CONFUSED STATE WANT TO GO HOME AND PULL OUT IV HL AT THIS TIME MED PRN FOR ANXIETY /AGITATION ATIVAN PO GIVEN ORDER ASSIST BACK TO BED RESTING
--- NOTE | 2017-06-04 16:15 | NUR ---
START PLT 1 UNIT TODAY INFUSION WELL NO REACTION VS STABLE
[2017-06-04] MEDS: PANTOPRAZOLE SODIUM 40 MG TABLET.DR PO SCH (17:06)
--- NOTE | 2017-06-04 17:30 | NUR ---
PLT FINISHED NO REACTION RESTING WELL FAMILY AT BEDSIDE
--- NOTE | 2017-06-04 18:00 | NUR ---
STABLE CONDITION NO ACUTE DISTRESS SAFETY MEASURE PROVIDED CALL LIGHT IN REACH
--- NOTE | 2017-06-04 18:55 | NUR ---
START 1 UNIT OF PRBC AT THIS TIME NO REACTION VS STABLE EAT DINNER WELL COOPERATE AT THIS TIME
--- NOTE | 2017-06-04 19:30 | NUR ---
Received patient laying comfortably in bed. Asleep at the moment. Family at bedside. In no apparent distress. Neutropenic Precautions followed. PRBc infusing on left ac # 20. No adverse reactions noted. Safety initiated. Call light within reach. Will continue to monitor. Bed alarm on. Bed is in low and locked position. Room is kept clutter free.
--- NOTE | 2017-06-04 21:11 | NUR ---
Transfusion ended. No adverse effects noted. Vital signs stable. 108/62 73 HR 98% O2 Sat.
[2017-06-05 04:00] VITALS: BP 124/77
--- NOTE | 2017-06-05 05:41 | NUR ---
Patient slept intermittently t/o shift. A&O x 2, forgetful. No acute distress noted. Denies pain and SOB. BRP. Room was kept clutter free. Bed remains in low and locked position. All meds given as ordered. All needs met.
[2017-06-05 06:05] LABS: BASOPHILS % (AUTO) 0.2 % (0.0-2.0); EOSINOPHILS % (AUTO) 0.8 % (0.0-7.0); HEMATOCRIT 25.6 % (31.2-41.9); HEMOGLOBIN 8.8 g/dL (10.9-14.3); LYMPHOCYTES # (AUTO) 0.6 K/uL (20.0-40.0); LYMPHOCYTES % (AUTO) 31.9 % (20.5-51.5); MEAN CORPUSCULAR HEMOGLOBIN 31.9 uug (24.7-32.8); MEAN CORPUSCULAR HGB CONC 34 g/dL (32.3-35.6); MEAN CORPUSCULAR VOLUME 92.8 fL (75.5-95.3); MONOCYTES # (AUTO) 0.2 K/uL (2.0-10.0); MONOCYTES % (AUTO) 11.2 % (0.0-11.0); NEUTROPHILS % (AUTO) 55.9 % (38.5-71.5); RED BLOOD CELL COUNT(AUTO) 2.76 MIL/uL (3.63-4.92)
[2017-06-05 06:27] LABS: BILIRUBIN,TOTAL 0.6 mg/dL (0.2-1.0); CREATININE 0.7 mg/dL (0.6-1.3); MAGNESIUM 2.2 mg/dL (1.8-2.4); PHOSPHOROUS 2.7 mg/dL (2.5-4.9); TOTAL PROTEIN, SERUM 6.9 g/dL (6.4-8.2)
[2017-06-05] MEDS: SUCRALFATE 1 G TABLET PO SCH ×3 (06:32→15:28)
[2017-06-05] MEDS: PANTOPRAZOLE SODIUM 40 MG TABLET.DR PO SCH ×2 (06:32→16:17)
[2017-06-05 06:47] LABS: PLATELET COUNT (AUTO) 83 K/uL (179-408); WHITE BLOOD COUNT (AUTO) 1.8 K/uL (3.8-11.8)
--- NOTE | 2017-06-05 08:00 | NUR ---
Pt is alert to name. Had to explain many times with patient re why she was here. Pt is in no no acute distress. IV on left arm intact. Call light is within reach.
[2017-06-05] MEDS: QUETIAPINE FUMARATE 25 MG TABLET PO SCH ×3 (09:25→16:17)
[2017-06-05] MEDS: LORAZEPAM 1 MG TABLET PO PRN ×2 (09:25→16:59)
[2017-06-05] MEDS: FOLIC ACID 1 MG TABLET PO SCH (09:26)
--- NOTE | 2017-06-05 10:45 | NUR ---
See admin comments from ativan EMAR charting. Ativan given earlier was effective pt not pacing on the hallway anymore. Pt has good steady gait. Fall precautions continued to be implemented. Charting in front of pts room. Offer bathroom breaks, call light within reach. bed alarm on. Call light is within reach.
[2017-06-05 11:05] VITALS: BP 114/67
[2017-06-05 11:05] LABS: BAND % (MANUAL) 3 % (0-10); EOSINOPHILS % (MANUAL) 1 % (0-8); LYMPHOCYTES % (MANUAL) 39 % (20-40); METAMYELOCYTES % 1 % (0-1); MONOCYTES % (MANUAL) 8 % (2-10); NEUTROPHILS % (MANUAL) 48 % (42-75)
[2017-06-05] MEDS ORDERED: MORPHINE SULFATE 2 MG/1 ML DISP.SYRIN IV PRN (12:00)
[2017-06-05] MEDS ORDERED: MORPHINE SULFATE 4 MG/1 ML DISP.SYRIN IV PRN (12:00)
[2017-06-05] MEDS: CEFTRIAXONE 1 G in IV DEXTROSE 5% 50 ML IV SCH (12:01)
[2017-06-05] MEDS ORDERED: FOLI1TAB16 PO (13:07)
[2017-06-05] MEDS ORDERED: ACET325T53 PO (13:07)
[2017-06-05] MEDS ORDERED: TEMA15CA5 PO (13:07)
[2017-06-05] MEDS ORDERED: QUET25TA PO ×2 (13:07)
[2017-06-05] MEDS ORDERED: PANT40TA2 PO (13:07)
[2017-06-05] MEDS ORDERED: LORA-259 PO (13:07)
[2017-06-05] MEDS ORDERED: CEPH-570 PO (13:07)
[2017-06-05] MEDS ORDERED: SUCR1TAB PO (13:07)
[2017-06-05] MEDS: ACETAMINOPHEN 325 MG TABLET PO PRN (15:03)
[2017-06-05] MEDS: QUETIAPINE FUMARATE 25 MG TABLET PO PRN (15:04)
[2017-06-05 15:13] VITALS: BP 106/57
--- NOTE | 2017-06-05 20:06 | NUR ---
EMT AND DAUGHTER AT BEDSIDE. PATIENT REFUSING TO GET OUT OF BED TO GET INTO [facility]. PATIENT IS CONFUSED. KEEPS SAYING " I WANT TO GO HOME" BUT REFUSING TO LEAVE HOSPITAL. CHARGE NURSE ASSISTED WITH TRYING TO GET PATIENT TO LEAVE. PATIENT FINALLY AGREED TO LEAVE. LEFT HOSPITAL VIA GURNEY WITH [facility] EMT AT 1954.
[2017-06-06] MEDS ORDERED: CEPHALEXIN MONOHYDRATE 500 MG CAPSULE PO SCH (06:00)
== END 2017-06-05 20:00 | DRG 808 ==
LOC: ER 12:51 → TELE 21:27 → MED 06-02 17:32
PROVIDERS: ADMIT Internal Medicine; ATTEND Internal Medicine
PROC: 30233R1 Transfusion of Nonautologous Platelets into Peripheral Vein, Percutaneous Approach (ICD-10-PCS; 2017-05-29)
PROC: 30233N1 Transfusion of Nonautologous Red Blood Cells into Peripheral Vein, Percutaneous Approach (ICD-10-PCS; 2017-05-29)
PROC: 07DR3ZX Extraction of Iliac Bone Marrow, Percutaneous Approach, Diagnostic (ICD-10-PCS; principal; 2017-05-31)
PROC: 0W3P8ZZ Control Bleeding in Gastrointestinal Tract, Via Natural or Artificial Opening Endoscopic (ICD-10-PCS; 2017-06-03)
PROC: 0DJD8ZZ Inspection of Lower Intestinal Tract, Via Natural or Artificial Opening Endoscopic (ICD-10-PCS; 2017-06-03)
PROC: 0DB98ZX Excision of Duodenum, Via Natural or Artificial Opening Endoscopic, Diagnostic (ICD-10-PCS; 2017-06-03)
PROC: 0DB68ZX Excision of Stomach, Via Natural or Artificial Opening Endoscopic, Diagnostic (ICD-10-PCS; 2017-06-03)
DX: D61.818 Other pancytopenia (principal); K26.4 Chronic or unspecified duodenal ulcer with hemorrhage; I21.A1 Myocardial infarction type 2; E43 Unspecified severe protein-calorie malnutrition; G93.40 Encephalopathy, unspecified; D68.9 Coagulation defect, unspecified; E87.1 Hypo-osmolality and hyponatremia; F23 Brief psychotic disorder; N39.0 Urinary tract infection, site not specified; E83.41 Hypermagnesemia; E83.39 Other disorders of phosphorus metabolism; E83.51 Hypocalcemia; F41.9 Anxiety disorder, unspecified; I73.9 Peripheral vascular disease, unspecified; Z68.26 Body mass index [BMI] 26.0-26.9, adult; M51.26 Other intervertebral disc displacement, lumbar region; M51.27 Other intervertebral disc displacement, lumbosacral region; D63.8 Anemia in other chronic diseases classified elsewhere; E87.6 Hypokalemia; M16.0 Bilateral primary osteoarthritis of hip; M43.16 Spondylolisthesis, lumbar region; E53.8 Deficiency of other specified B group vitamins; K29.70 Gastritis, unspecified, without bleeding; Z20.5 Contact with and (suspected) exposure to viral hepatitis
CPT/HCPCS: 36415; 43235; 70030-TC; 70450; 71045; 72131; 76700; 82746; 82784; 83550; 83605; 83735; 84100; 84155; 84165; 84443; 85025; 85610; 85651; 85730; 86334; 86705; 86709; 86803; 86850; 86900; 86901; 86920; 87040; 87086; 87340; 88342; 93005; 93307; A4217; A4663; C9113; J0696; J2060; J2270; J3490; J7030; J7040; J7050; J7060; P9016-BL; P9021; P9035-BL